=== PATIENT | female | born 1990 | race Caucasian/White ===

== ENCOUNTER 2016-06-22 13:22 | Emergency (ER) | payer OTHER ==
--- NOTE | 2016-06-22 14:35 | PD ---
HPI Chief Complaint Decreased movement Date Seen: Jun 22, 2016 (Pavel Lisa MD R2) Travel History International Travel<30 Days: No Contact w/Intl Traveler<30Days: No (Pavel Lisa MD R2) History of Present Illness HPI Ms. Gregg is a 26 yo G[address] patient of Dr. Verduzco at 27 1/7 weeks (NILDA 09/20/2016) who presents with complaint of decreased movement. Patient accompanied by her who supplemented a history due to language barrier. Patient reports that her gestation has not been moving as much since Wednesday (06/19). Patient otherwise denies symptoms at this time. She reports occasional headaches and occasional back pain, but denies significant headache, vision changes, nausea/vomiting, shortness of breath, chest pain, dysuria, abdominal pain, vaginal bleeding, or vaginal discharge. Patient reports unremarkable history. She reportedly had ultrasound 2 weeks ago which was reassuring. Para: 0 : 1 (Pavel Lisa MD R2) History Past Medical History Medical History: Denies Significant Hx (Pavel Lisa MD R2) Obstetric History Obstetric History G1 (Pavel Lisa MD R2) Past Surgical History Surgical History: No Previous Surgery (Pavel Lisa MD R2) Family History Family History: Negative (Pavel Lisa MD R2) Social History Alcohol Use: No Tobacco Use: No Substance Abuse: No (Pavel Lisa MD R2) Review of Systems General / Constitutional: No: Fever, Chills HENT: Headaches (occasional) Cardiovascular: No: Chest Pain or Discomfort Respiratory: No: Short of Breath Gastrointestinal: No: Vomiting Genitourinary: No: Urgency, Dysuria (Pavel Lisa MD R2) Physical Exam BP 140/75 _> 124/66 HR 113 RR 18 T 98.4 Narrative GENERAL: Well-nourished, well-developed patient. SKIN: Warm and dry. HEAD: Normocephalic and atraumatic. EYES: No scleral icterus. No injection or drainage. ENT: No nasal drainage noted. Mucous membranes pink. Airway patent. NECK: No lymphadenopathy or thyromegaly CARDIOVASCULAR: Regular rate and rhythm without murmurs. Normal perfusion. RESPIRATORY: CTAB, normal rate ABDOMEN/GI: Abdomen soft, non-tender, bowel sounds present, no rebound, no guarding Gravid EXTREMITIES: No peripheral edema NEUROLOGICAL: Awake and alert. Motor and sensory function grossly within normal limits. FHT's: Category: 1 Baseline: 130 Reactive: Y Variability: Mod Decels: None (Pavel Lisa MD R2) Data Data Vital Signs Reviewed: Yes (Pavel Lisa MD R2) MDM Medical Record Reviewed: Yes Narrative Course / MDM 26 yo G1 patient of [address]. Verduzco at 27 1/7 weeks (NILDA 09/20/2016) -Report of decreased FM -Benign course -Cat 1 rhythm -No visible contractions -BP initially 140/75-> 122/66 w/o intervention (suspect stress) Plan: -Will monitor EFM 20 minutes to assure reassuring tracing Interval History: -Category 1 rhythm 20 minutes Updated Plan: -Due to Category 1 rhythm 20 minutes, we are reassured of status at this time. Patient and her were reassured well-being. Will discharge patient to follow-up with Dr. Verduzco routinely. (Pavel Lisa MD R2) Attending Attestation Patient seen and examined. Reports movement since arrival to [facility]. movement counts given. All questions answered. (Gely Valle MD) Diagnosis Diagnosis: Primary Impression: Decreased movement Additional Impression: 27 weeks gestation of Disposition: 01 DISCHARGE HOME Condition: Stable Patient Instructions: General Instructions, Movement (ED) Pavel Lisa MD R2 Jun 22, 2016 14:35 Gely Valle MD Jun 22, 2016 14:50
== END 2016-06-22 14:58 | disposition home or self-care (01) ==
LOC: HOBED 13:22
DX: O36.8120 Decreased fetal movements, second trimester, not applicable or unspecified (principal); Z3A.27 27 weeks gestation of pregnancy
CPT/HCPCS: 99283

== ENCOUNTER 2016-09-23 18:24 | Inpatient (IN) | payer OTHER ==
[~2016-09-23] VITALS: Ht 157.5 cm; Wt 68.9 kg
[2016-09-23 19:08] VITALS: BP 148/79; PULSE 93
[2016-09-23] MEDS: LACTATED RINGER'S 1000 ML INJ 1,000 ML IV SCH (20:00)
[2016-09-23 20:30] VITALS: RESP 18
[2016-09-23] MEDS ORDERED: NS 1000 ML OTHER PRN (20:30)
[2016-09-23] MEDS ORDERED: DINOPROSTONE 10 MG INSERT - REMOVE AT 0600 VAGINAL SCH (20:30)
[2016-09-23] MEDS ORDERED: FERR325C PO (20:32)
[2016-09-23] MEDS ORDERED: PNV-CAP PO (20:32)
[2016-09-23] MEDS ORDERED: LIDOCAINE HCL 1% 50 ML VIAL I-DERMAL PRN (20:45)
[2016-09-23] MEDS ORDERED: CITRIC ACID-SODIUM CITRATE LIQ 30 ML UDC PO SCH (20:45)
[2016-09-23] MEDS ORDERED: LIDOCAINE HCL 1% 50 ML VIAL INFIL PRN (20:45)
[2016-09-23] MEDS ORDERED: ONDANSETRON HCL 4 MG/2 ML VIAL IV PRN (20:45)
[2016-09-23] MEDS ORDERED: OXYTOCIN 30 UNITS 500ML PREMIX IV ONE (20:45)
[2016-09-23] MEDS ORDERED: NS 500 ML BOLUS IV PRN (20:45)
[2016-09-23] MEDS ORDERED: MINERAL OIL 10 ML VIAL TOPICAL PRN (20:45)
[2016-09-23] MEDS ORDERED: LACTATED RINGER'S 1000 ML BOLUS IV PRN (20:45)
[2016-09-23] MEDS ORDERED: NS 1000 ML IV PRN (20:45)
[2016-09-23 20:55] LABS: AUTOMATED NEUTROPHIL # 6.6 TH/MM3 (1.8-7.7); BASOPHIL % 0.1 % (0.0-2.0); EOSINOPHIL # 0.1 TH/MM3 (0-0.4); EOSINOPHIL % 1.3 % (0.0-4.0); HEMATOCRIT 32.1 % (35.0-46.0); HEMO FLAGS DIFF FINAL; LYMPH % 20.2 % (9.0-44.0); MEAN CELL VOLUME 83.7 FL (80.0-100.0); MEAN CORPUSCULAR HEMOGLOBIN 28.6 PG (27.0-34.0); MEAN CORPUSCULAR HGB CONC 34.2 % (32.0-36.0); MONO % 11.9 % (0.0-8.0); NEUT % 66.5 % (16.0-70.0); PLATELET COUNT 205 TH/MM3 (150-450); RED BLOOD COUNT 3.84 MIL/MM3 (4.00-5.30); RED CELL DISTRIBUTION WIDTH 12.2 % (11.6-17.2)
[2016-09-23 20:58] LABS: BACTERIA, URINE RARE /hpf; BLOOD, URINE NEG (NEG); COMMENT (UR) CULT NOT INDICATED; CULTURE IF INDICATED CULT NOT INDICATED; GLUCOSE,URINE NEG (NEG); KETONE, URINE NEG (NEG); NITRITE,URINE NEG (NEG); PH, URINE 6.5 (5.0-8.5); SQUAMOUS EPITHELIAL CELL URINE <1 /hpf (0-5); URINE COLOR LIGHT-YELLOW (YELLW/STRAW)
[2016-09-23] MEDS ORDERED: ZOLPIDEM TARTRATE 5 MG TAB PO ONE (21:00)
[2016-09-23 22:26] VITALS: TEMP 98
[2016-09-23 22:27] VITALS: BP 131/76; PULSE 86; RESP 18
[2016-09-24] VITALS (100 sets, daily range): BP systolic 94–154; BP diastolic 44–104; PULSE 80–153; RESP 16–18; TEMP 97.9–98.8
[2016-09-24] MEDS ORDERED: OXYTOCIN 30 UNITS/NS 500ML PREMIX IV SCH (06:30)
[2016-09-24] MEDS: LACTATED RINGER'S 1000 ML INJ 1,000 ML IV SCH ×2 (07:18→17:05)
--- NOTE | 2016-09-24 08:34 | MH ---
cc: SULEMAN CHAVEZ M.D. DATE OF ADMISSION: 09/23/2016 DATE OF 1990 CHIEF COMPLAINT The patient is being admitted for induction of labor at 40 weeks and 3 days. HISTORY The patient is a 26-year-old female, 1, para 0, last menstrual period was December 19, 2015. Early care confirmed estimated date of confinement at September 20, 2016 by serial first trimester ultrasound. The patient has had an uncomplicated course. The patient presents to her clinic at 40 weeks and 2 days. Cervix is favorable, 60%, 1-2 cm. Pressure is slightly elevated at 130/80. Total weight gain is approximately 45 pounds. The patient denies any specific symptoms. No headache. No nausea or vomiting, blurred vision, decreased movement. There is no increased swelling or edema. The patient was counseled and elected for induction of labor. The patient was brought in for Cervidil on September 23, 2016. The patient's medical history: ALLERGIES NO KNOWN DRUG ALLERGIES. MEDICATIONS She denies any systemic or chronic disease state. PAST SURGICAL HISTORY She has never had surgery. course is unremarkable. The patient has had a healthy course. Group B strep status is negative. The patient's blood type is O+. SOCIAL HISTORY She is . Recent immigrant from [place]. The patient denies any alcohol, tobacco or illicit substance use. FAMILY HISTORY The patient's family history is noncontributory. MEDICATIONS Include vitamins. PHYSICAL EXAMINATION GENERAL: The patient is well-appearing, well-nourished female in no distress. VITAL SIGNS: Stable. Blood pressures 130/80. She weighs 152 pounds. heart rate is in the 140s. Biophysical profile was 8/8. HEENT: The patient's HEENT shows no adenopathy or thyromegaly. LUNGS: Clear in all maurice. CARDIOVASCULAR: Regular rate and rhythm. ABDOMEN: Gravid, full-term. Fundus is about 40 weeks. PELVIC: Cervical exam is 60%, mid position, 1-2 cm, soft, -2. Vertex. EXTREMITIES: Are 1+ edema. No cyanosis, clubbing or edema. Deep tendon reflexes are 1+. ASSESSMENT The patient is 40 weeks and 3 days by confirmed first trimester sonography, uncomplicated course, favorable cervix. Group B strep status negative. The patient is scheduled for Cervidil induction scheduled for 09/23/2016. MD SELENE Little/KK /4:45 PM /8:33 AM
[2016-09-24 09:39] LABS: RAPID PLASMA REAGIN SCREEN NON-REACTIVE (NON-REACTVE)
[2016-09-24] MEDS ORDERED: fentaNYL 2MCG-BUPIV 0.125% INJ 100 ML ONE (14:44)
[2016-09-24] MEDS ORDERED: ePHEDrine/NS 25 MG/5 ML SYR ONE (14:45)
[2016-09-24] MEDS ORDERED: NO SYSTEM NARCOTICS PRN (16:00)
[2016-09-24] MEDS ORDERED: ePHEDrine/NS 25 MG/5 ML SYR IV PRN (16:00)
[2016-09-24] MEDS ORDERED: DO NOT ADMINISTER ANTICOAGULANTS PRN (16:00)
[2016-09-24] MEDS ORDERED: DIPHTH/TETANUS/ACEL PERTUSSIS (BOOSTER) 0.5 ML VIAL/PFS IM ONE (16:00)
[2016-09-24] MEDS ORDERED: fentaNYL 2MCG-BUPIV 0.125% 100 ML EPIDURAL SCH (16:00)
[2016-09-24] MEDS ORDERED: MEASLES, MUMPS, RUBELLA VACCINE 0.5 ML VIAL SQ ONE (16:00)
[2016-09-24] MEDS ORDERED: CARBOPROST TROMETHAMINE 250 MCG/ML VIAL ONE (20:09)
[2016-09-24] MEDS ORDERED: CARBOPROST TROMETHAMINE 250 MCG/ML VIAL IM ONE (20:15)
--- NOTE | 2016-09-24 20:25 | PD.OB.DELI ---
Anesthesia: Epidural Episiotomy: Right mediolateral Vaginal Delivery: Vacuum Presentation: Occiput anterior Nuchal Cord: None Delayed cord clamping (45 sec): Yes Shoulder Dystocia: Suprapubic pressure given, Johann maneuver done, Wood's screw maneuver done, Other (Vijay Manuever and fracture of right clavicle ( intentional)) Infant: Female One Minute : 5 Five Minute : 8 Weight: 8 12 Placenta: Spontaneous delivery Laceration: 3 deg Repair: Vicryl interrupted, Vicryl running (moderate PPH treated with hemobate and evacuation of uterus all dictated) Sofi Rosario MD Sep 24, 2016 20:25
[2016-09-24 20:30] LABS: BLOOD GAS BASE EXCESS -7.8 mmol/L (-2-2); BLOOD GAS O2 HGB SATURATION 26 % (90-100); CORD BLOOD GAS HCO3 18 mmol/L (21-29); CORD BLOOD GAS PCO2 45 mmHG (34-78); CORD BLOOD GAS PH 7.23 (7.14-7.42); CORD BLOOD GAS PO2 19 mmHG (3.0-40.0); DRAW SITE CORD BLOOD; STAT YES
[2016-09-24] MEDS ORDERED: BENZOCAINE 20% TOPICAL SPRAY 60 ML CAN TOPICAL PRN (20:30)
[2016-09-24] MEDS ORDERED: DOCUSATE SODIUM 50 MG/SENNA 8.6 MG TAB PO PRN (20:30)
[2016-09-24] MEDS ORDERED: oxyCODONE/ACETAMINOPHEN 5 MG/325 MG TAB PO PRN (20:30)
[2016-09-24] MEDS ORDERED: ZOLPIDEM TARTRATE 5 MG TAB PO PRN (20:30)
[2016-09-24] MEDS ORDERED: ONDANSETRON ODT 4 MG TAB PO PRN (20:30)
[2016-09-24] MEDS ORDERED: ALUMINUM/MAGNESIUM/SIMETH 30 ML CUP PO PRN (20:30)
[2016-09-24] MEDS ORDERED: SODIUM CHLORIDE 0.9% FLUSH 10 ML FLUSH IV FLUSH PRN (20:30)
[2016-09-24] MEDS ORDERED: OXYTOCIN 30 UNITS-500ML PREMIX 500 ML IV ONE (20:40)
--- NOTE | 2016-09-24 20:57 | MP ---
cc: SOFI BETHEA DATE OF DELIVERY 09/24/16 DATE OF 1990 The patient is a 26 year old [place] female 1, para 0 at 40+ weeks estimated gestational age who was brought in for induction by Dr. Verduzco. She had received I believe it was Cervidil on the evening of September 23. I introduced myself this morning to Beba at approximately 8 o'clock when she was 2 cm 80% -2 with the baby well applied. Estimated weight at that time I thought was 7-1/2 pounds and I felt her pelvis was clinically adequate. Baby was well applied. Strip was category one. She was started on Pitocin after AROM clear and had difficulty establishing a consistent contraction pattern throughout the day. Her initial cervical change was slow and, when I arrived at 5:30 to labor and delivery, she was described as 4 cm -1 to -2, 80% effaced. Her strip had some tachycardia, occasional late appearing decelerations, some variables but overall always had excellent [id number] variability. At the time I arrived, there was developing some tachycardia, but she was afebrile. When I checked her, she was complete and at zero station. At that time, there was really no significant swelling. There was a small asynclitic caput to the left side of the mom. Because the strip was category II and less than reassuring, we began to push and Beba's effort was somewhat marginal. Her epidural was turned off and after a good 1/2 hour she was counseled on vacuum and a vacuum was placed over three contractions bringing the baby down nicely. She was not able to take the baby to on her own over the course of the next 1/2 hour. Martin Vianca's were considered and an application was attempted, but the asynclitism of the was such that it was not appropriate to apply. At this point. the Liz catheter had been removed. The baby was down so far we could not catheterize the bladder. Over the course of the next 1/2 hour, Beba continued to push with the use of the towel. use of handle bars and eventually on her left side. A right medial lateral episiotomy was cut and, when the baby did crown, it was immediately noted to be a significant shoulder dystocia with a turtling of the 's head back into the perineum. a shoulder dystocia drill was called, times were taken, suprapubic pressure was applied and at a Johann was performed head downward, gentle is consistent traction was applied to the 's head. I attempted to do at this point a Blandon maneuver and a counter Blandon maneuver, was not successful and the anterior shoulder was firmly impacted against the pubic symphysis. The posterior shoulder was not impacted and I could palpate the arm and clavicle. She was therefore placed into knee chest position, making the posterior shoulder the anterior shoulder evaluated and the clavicle was then pressed, likely fractured on the infant's right and the arm delivered and then the baby delivered. Her Apgars were 4 at 1 minute and 8 at 5 minutes with significant grunting. She had two off for color and two off for tone. She was never bradycardic but profoundly tachycardiac initially. Cord gases and cord blood was obtained and then the placenta was delivered intact with a three-vessel cord. The mediolateral episiotomy head extended into the sphincter. This was repaired with 2-0 Vicryl multiple interrupted and then the ischiocavernosa muscle was repaired and then the classic second degree repair was performed and 4-0 Vicryl was used on the perineum close to the rectum where she has significant hemorrhoids. Estimated blood loss in the next hour was about 500 mL and significant clot was removed from the uterus and she was given Hemabate. Infant is currently being evaluated in the NICU. Her right arm appears to be sore. She is moving the hand and the lower extremity well. Does appear to have tone in the upper portion but does not care to use it at this time. She is on C-PAP, satting reasonably well and will be monitored by the nurse practitioner for the intensive care unit tonight. Sponge, instrument, needle count were correct and mom and baby are currently doing reasonably well. Sofi Bethea MD PPC/SA /8:21 PM /8:42 PM
[2016-09-24] MEDS ORDERED: SODIUM CHLORIDE 0.9% FLUSH 10 ML FLUSH IV FLUSH SCH (21:00)
[2016-09-24] MEDS: oxyCODONE/ACETAMINOPHEN 5 MG/325 MG TAB PO PRN (22:30)
[2016-09-24] MEDS ORDERED: ceFAZolin 1,000 MG/NS 100 ML IV ONE ×2 (23:15)
[2016-09-24] MEDS: WITCH HAZEL 50%/GLYCERIN 12.5% 40 PAD JAR TOPICAL PRN (23:45)
[2016-09-25 00:54] VITALS: BP 131/71; PULSE 105; RESP 16; TEMP 98.4
[2016-09-25] MEDS: oxyCODONE/ACETAMINOPHEN 5 MG/325 MG TAB PO PRN ×2 (04:40→17:47)
[2016-09-25] MEDS: IBUPROFEN 600 MG TAB PO PRN ×2 (04:43→17:46)
[2016-09-25 08:00] VITALS: BP 110/69; PULSE 108; RESP 16; TEMP 98.1
--- NOTE | 2016-09-25 08:08 | HHI.OB ---
Subjective Post Day: 1 Remarks Doing well , No chest pain or pressure, no dizziness, quite fatigued. Pain is well controlled Bottom is sore. How is the baby? Objective Vitals/I&O Vital Signs Date Time Temp Pulse Resp B/P Pulse Ox O2 Delivery O2 Flow Rate FiO2 09/25/16 00:54 98.4 105 16 131/71 09/24/16 23:36 98.8 09/24/16 23:36 18 09/24/16 23:30 107 120/69 09/24/16 23:00 105 18 132/70 09/24/16 22:30 104 122/80 09/24/16 22:24 18 09/24/16 22:15 98 128/77 09/24/16 22:00 103 138/78 09/24/16 22:00 18 09/24/16 21:45 107 148/80 09/24/16 21:43 18 09/24/16 21:30 107 131/74 09/24/16 21:30 18 09/24/16 21:15 18 09/24/16 21:15 117 127/84 09/24/16 21:00 105 134/86 09/24/16 21:00 18 09/24/16 20:45 103 141/82 09/24/16 20:40 18 09/24/16 20:30 106 137/82 09/24/16 20:30 18 09/24/16 20:15 122 121/67 09/24/16 20:15 18 09/24/16 20:01 133 105/45 09/24/16 19:46 132 119/49 09/24/16 19:30 140 09/24/16 19:25 153 09/24/16 19:20 134 09/24/16 19:15 130 09/24/16 19:15 151 09/24/16 19:10 124 09/24/16 19:10 140 135/71 09/24/16 19:01 142 129/104 09/24/16 18:45 126 125/75 09/24/16 18:16 128 152/76 09/24/16 18:10 137 09/24/16 18:05 131 09/24/16 18:00 117 09/24/16 18:00 122 154/65 09/24/16 17:55 117 09/24/16 17:50 107 09/24/16 17:45 85 09/24/16 17:45 86 118/60 09/24/16 17:40 92 09/24/16 17:35 84 09/24/16 17:30 86 94/68 09/24/16 17:30 93 09/24/16 17:25 82 09/24/16 17:20 84 09/24/16 17:15 85 09/24/16 17:15 85 108/60 09/24/16 17:12 98.2 16 09/24/16 17:10 87 09/24/16 17:05 16 09/24/16 17:05 95 09/24/16 17:00 80 116/66 09/24/16 17:00 89 09/24/16 16:55 85 09/24/16 16:50 88 09/24/16 16:45 85 107/66 09/24/16 16:45 89 09/24/16 16:42 18 09/24/16 16:40 85 09/24/16 16:35 87 09/24/16 16:31 92 108/68 09/24/16 16:30 87 09/24/16 16:25 85 09/24/16 16:20 87 09/24/16 16:15 85 09/24/16 16:15 85 112/67 09/24/16 16:10 105 09/24/16 16:05 101 09/24/16 16:00 93 09/24/16 16:00 109 110/56 09/24/16 15:55 96 09/24/16 15:50 100 09/24/16 15:45 96 09/24/16 15:45 103 106/44 17 15:40 105 09/24/16 15:35 104 09/24/16 15:30 94 09/24/16 15:30 92 105/45 09/24/16 15:29 98.0 16 09/24/16 15:25 92 17 15:25 112 117/61 17 15:20 105 125/64 09/24/16 15:15 105 109/55 09/24/16 15:12 108 114/51 09/24/16 15:10 112 109/66 09/24/16 15:08 114 115/62 09/24/16 15:06 113 118/62 09/24/16 15:05 107 09/24/16 15:04 105 111/63 09/24/16 15:02 112 119/75 09/24/16 15:00 103 130/79 09/24/16 14:55 104 09/24/16 14:44 16 09/24/16 14:40 93 09/24/16 14:35 83 09/24/16 14:31 85 117/72 09/24/16 14:30 82 09/24/16 14:30 97.9 16 09/24/16 14:25 88 09/24/16 14:20 83 09/24/16 14:10 83 09/24/16 14:05 96 09/24/16 14:00 85 09/24/16 13:31 87 121/76 09/24/16 12:25 98.3 09/24/16 12:24 81 133/81 09/24/16 12:23 17 09/24/16 11:57 98.2 09/24/16 11:00 98.2 09/24/16 10:30 89 122/71 09/24/16 09:30 88 09/24/16 09:30 98.6 86 18 129/76 09/24/16 09:25 91 09/24/16 09:15 98 09/24/16 09:10 99 09/24/16 09:05 101 09/24/16 08:30 93 124/71 Objective Remarks GENERAL: Well-nourished, well-developed patient. CARDIOVASCULAR: Regular rhythm mildly tachycardic, without murmurs, gallops, or rubs. RESPIRATORY: Breath sounds equal bilaterally. No accessory muscle use. ABDOMEN/GI: Abdomen soft, non-tender. Fundus: Firm, non-tender at umbilicus. GENITOURINARY: Light to moderate bleeding. EXTREMITIES: No cyanosis or edema, non-tender, without signs of DVT. Medications and IVs Current Medications Medications (Trade) Dose Ordered Sig/Yakov Route Start Time Stop Time Status Last Admin Lactated Ringer's 1,000 ml @ 125 mls/hr Q8H IV 09/23/16 20:30 09/24/16 17:05 Sodium Chloride 1,000 ml @ 0 mls/hr UNSCH PRN OTHER 09/23/16 20:30 Lactated Ringer's 1,000 ml @ 3,000 mls/hr BOLUS PRN IV 09/23/16 20:45 Sodium Chloride 500 ml @ 1,000 mls/hr BOLUS PRN IV 09/23/16 20:45 (NS 1000 ml Inj) 1,000 ml @ 100 mls/hr Q10H PRN IV 09/23/16 20:45 (Zofran Inj) 4 mg Q6H PRN IV 09/23/16 20:45 (fentaNYL INJ) 50 mcg Q1H PRN IV PUSH 09/23/16 20:45 09/24/16 11:12 (fentaNYL INJ) 100 mcg Q1H PRN IV PUSH 09/23/16 20:45 09/24/16 19:39 Mineral Oil 10 ml 10 ml UNSCH PRN TOPICAL 09/23/16 20:45 (Pitocin 30 Units-NS 500 ml Premix) 500 ml @ 0 mls/hr TITRATE IV 09/24/16 06:30 09/24/16 07:18 Miscellaneous Information No systemic narcotics to be given except... UNSCH PRN .XX 09/24/16 16:00 09/25/16 15:59 Miscellaneous Information DO NOT ADMINISTER ANY ANTICOAGUL... UNSCH PRN .XX 09/24/16 16:00 09/25/16 15:59 (fentaNYL 2MCG-BUPIV 0.125% INJ) 100 ml @ 0 mls/hr TITRATE EPIDURAL 09/24/16 16:00 09/24/16 17:05 (ePHEDrine/NS 25 MG/5 ML SYR) 10 mg UNSCH PRN IV 09/24/16 16:00 09/25/16 15:59 (NS Flush) 2 ml BID IV FLUSH 09/24/16 21:00 (NS Flush) 2 ml UNSCH PRN IV FLUSH 09/24/16 20:30 (Tylenol) 650 mg Q4H PRN PO 09/24/16 20:30 (Motrin) 600 mg Q6H PRN PO 09/24/16 20:30 09/25/16 04:43 (Percocet 5-325 Mg) 1 tab Q4H PRN PO 09/24/16 20:30 09/25/16 04:40 (Percocet 5-325 Mg) 2 tab Q4H PRN PO 09/24/16 20:30 (Americaine 20% Top Spr) 1 spray Q4H PRN TOPICAL 09/24/16 20:30 09/24/16 23:45 (Tucks Pads) 1 applic QID PRN TOPICAL 09/24/16 20:30 09/24/16 23:45 (Trinh-Colace) 2 tab Q12H PRN PO 09/24/16 20:30 (Ambien) 5 mg HS PRN PO 09/24/16 20:30 (Mag-Al Plus Susp Liq) 15 ml Q8H PRN PO 09/24/16 20:30 (Zofran Odt) 4 mg Q6H PRN PO 09/24/16 20:30 (Miralax) 17 gm DAILY PO 09/25/16 09:00 Assessment/Plan Assessment and Plan PPD #1 Severe anemia. will give venofer for 3 days and consider transfusion if she becomes Sx or if H/H falls Follow her cbc. Baby is in the NICU and doing well. Some problems with the movement ot the arm. They are following it closely and may get an CXR to check the clavicle Discussed the need to have a C/S with her next delivery. Discharge Planning may need to stay an extra day due to the severe anemia. Seth Armenta MD Sep 25, 2016 08:08
[2016-09-25] MEDS: LACTATED RINGER'S 1000 ML INJ 1,000 ML IV SCH (08:29)
[2016-09-25 10:37] LABS: AUTOMATED NEUTROPHIL # 10.7 TH/MM3 (1.8-7.7); BASOPHIL % 0.1 % (0.0-2.0); EOSINOPHIL % 0.2 % (0.0-4.0); MEAN CELL VOLUME 84.2 FL (80.0-100.0); MEAN CORPUSCULAR HEMOGLOBIN 28.4 PG (27.0-34.0); MEAN CORPUSCULAR HGB CONC 33.8 % (32.0-36.0); MONO % 6.1 % (0.0-8.0); NEUT % 78.6 % (16.0-70.0); PLATELET COUNT 153 TH/MM3 (150-450); RED BLOOD COUNT 2.46 MIL/MM3 (4.00-5.30); RED CELL DISTRIBUTION WIDTH 12.5 % (11.6-17.2); WHITE BLOOD COUNT 13.6 TH/MM3 (4.0-11.0)
[2016-09-25 10:42] LABS: HEMO FLAGS DIFF FINAL
[2016-09-25 10:45] LABS: HEMATOCRIT 20.7 % (35.0-46.0)
[2016-09-25] MEDS: IRON SUCROSE INJ 200 MG in SODIUM CHLORIDE 0.9% INJ 100 ML IV SCH (11:25)
--- NOTE | 2016-09-25 11:48 | HHI.DCPOC ---
Discharge Care Plan Diagnosis: (1) Anemia (2) Normal vaginal delivery Report Symptoms to Your Doctor -Temperature above 100.5 degrees -Redness, of incision or excessive or foul smelling drainage -Unusual pain or calf pain -Increased vaginal bleeding -Painful or difficulty urinating -Feelings of extreme sadness or anxiety after 2 weeks Goals to Promote Your Health * To prevent worsening of your condition and complications * To maintain your health at the optimal level Directions to Meet Your Goals Take your medications as prescribed Follow your dietary instruction Follow activity as directed Ensure plenty of rest for recovery Drink fluids for hydration Keep your appointments as scheduled Take your immunizations and boosters as scheduled If your symptoms worsen call your PCP, if no PCP go to Urgent Care Center or Emergency Room Smoking is Dangerous to Your Health. Avoid second hand smoke Call the 24-hour crisis hotline for domestic abuse at Soraya David Sep 25, 2016 11:48
[2016-09-25 20:15] VITALS: BP 108/67; PULSE 105; RESP 18; TEMP 98.2
[2016-09-26 06:51] LABS: MEAN CELL VOLUME 86.2 FL (80.0-100.0); MEAN CORPUSCULAR HEMOGLOBIN 28.3 PG (27.0-34.0); MEAN CORPUSCULAR HGB CONC 32.8 % (32.0-36.0); PLATELET COUNT 161 TH/MM3 (150-450); RED BLOOD COUNT 2.36 MIL/MM3 (4.00-5.30); RED CELL DISTRIBUTION WIDTH 12.6 % (11.6-17.2); WHITE BLOOD COUNT 13.2 TH/MM3 (4.0-11.0)
[2016-09-26 07:11] LABS: REVIEW FLAG FINAL
[2016-09-26 07:13] LABS: HEMATOCRIT 20.4 % (35.0-46.0)
[2016-09-26 07:21] VITALS: BP 115/75; PULSE 111; RESP 18; TEMP 99.3
[2016-09-26] MEDS: IBUPROFEN 600 MG TAB PO PRN ×2 (08:25→23:30)
[2016-09-26] MEDS: POLYETHYLENE GLYCOL 17 GM PKG PO SCH (09:00)
[2016-09-26] MEDS: IRON SUCROSE INJ 200 MG in SODIUM CHLORIDE 0.9% INJ 100 ML IV SCH (12:20)
--- NOTE | 2016-09-26 13:57 | HHI.OB ---
Subjective Post Day: 2 Remarks Doing ok No SOB, chest pain or pressure, no dizziness. Tolerating diet well. she is a vegan. Objective Vitals/I&O Vital Signs Date Time Temp Pulse Resp B/P Pulse Ox O2 Delivery O2 Flow Rate FiO2 09/26/16 07:21 99.3 111 18 115/75 09/25/16 20:15 105 18 108/67 09/25/16 20:15 98.2 Objective Remarks GENERAL: Well-nourished, well-developed patient. CARDIOVASCULAR: Regular rhythm slightly tachycardic, without murmurs, gallops, or rubs. RESPIRATORY: Breath sounds equal bilaterally. No accessory muscle use. ABDOMEN/GI: Abdomen soft, non-tender. Fundus: Firm, non-tender at umbilicus. GENITOURINARY: Light bleeding. EXTREMITIES: No cyanosis or edema, non-tender, without signs of DVT. Medications and IVs Current Medications Medications (Trade) Dose Ordered Sig/Yakov Route Start Time Stop Time Status Last Admin Lactated Ringer's 1,000 ml @ 125 mls/hr Q8H IV 09/23/16 20:30 09/25/16 08:29 Sodium Chloride 1,000 ml @ 0 mls/hr UNSCH PRN OTHER 09/23/16 20:30 Lactated Ringer's 1,000 ml @ 3,000 mls/hr BOLUS PRN IV 09/23/16 20:45 Sodium Chloride 500 ml @ 1,000 mls/hr BOLUS PRN IV 09/23/16 20:45 (NS 1000 ml Inj) 1,000 ml @ 100 mls/hr Q10H PRN IV 09/23/16 20:45 (Zofran Inj) 4 mg Q6H PRN IV 09/23/16 20:45 (fentaNYL INJ) 50 mcg Q1H PRN IV PUSH 09/23/16 20:45 09/24/16 11:12 (fentaNYL INJ) 100 mcg Q1H PRN IV PUSH 09/23/16 20:45 09/24/16 19:39 Mineral Oil 10 ml 10 ml UNSCH PRN TOPICAL 09/23/16 20:45 Oxytocin 500 ml @ 0 mls/hr TITRATE IV 09/24/16 06:30 09/24/16 07:18 (fentaNYL 2MCG-BUPIV 0.125% INJ) 100 ml @ 0 mls/hr TITRATE EPIDURAL 09/24/16 16:00 09/24/16 17:05 (NS Flush) 2 ml BID IV FLUSH 09/24/16 21:00 (NS Flush) 2 ml UNSCH PRN IV FLUSH 09/24/16 20:30 (Tylenol) 650 mg Q4H PRN PO 09/24/16 20:30 (Motrin) 600 mg Q6H PRN PO 09/24/16 20:30 09/26/16 08:25 (Percocet 5-325 Mg) 1 tab Q4H PRN PO 09/24/16 20:30 09/25/16 17:47 (Percocet 5-325 Mg) 2 tab Q4H PRN PO 09/24/16 20:30 (Americaine 20% Top Spr) 1 spray Q4H PRN TOPICAL 09/24/16 20:30 09/24/16 23:45 (Tucks Pads) 1 applic QID PRN TOPICAL 09/24/16 20:30 09/24/16 23:45 (Trinh-Colace) 2 tab Q12H PRN PO 09/24/16 20:30 (Ambien) 5 mg HS PRN PO 09/24/16 20:30 (Mag-Al Plus Susp Liq) 15 ml Q8H PRN PO 09/24/16 20:30 09/25/16 11:24 (Zofran Odt) 4 mg Q6H PRN PO 09/24/16 20:30 Polyethylene Glycol 17 gm 17 gm DAILY PO 09/25/16 09:00 (Venofer Inj/NS Inj) 110 ml @ 110 mls/hr Q24H IV 09/25/16 12:00 09/27/16 12:59 09/26/16 12:20 Assessment/Plan Assessment and Plan PPD #2 Severe anemia..discussed the RBA of blood transfusion with pt and her family. she is not symptomatic at this time and she has plenty of help at home She is a Vegan and does not eat meat or eggs. I got her a list of iron rich foods in [place] and will start her back on Fe and pericolace when she goes home. Will get a follow up cbc in one week. She will get her third dose of venofer tomorrow. H/o Traumatic ... baby is doing well and discussed the need for a c/s with her next child Discharge Planning Plan to d/c home tomorrow due to the severe anemia. Seth Armenta MD Sep 26, 2016 13:57
[2016-09-26] MEDS ORDERED: IBUP-232 PO (14:00)
[2016-09-26 19:29] VITALS: BP 120/78; PULSE 126; RESP 16; TEMP 99.8
[2016-09-26] MEDS: WITCH HAZEL 50%/GLYCERIN 12.5% 40 PAD JAR TOPICAL PRN (19:41)
[2016-09-26] MEDS: ACETAMINOPHEN 325 MG TAB PO PRN (23:29)
[2016-09-27 00:25] VITALS: TEMP 98.2
[2016-09-27 06:18] LABS: MEAN CELL VOLUME 85.6 FL (80.0-100.0); MEAN CORPUSCULAR HEMOGLOBIN 28.4 PG (27.0-34.0); MEAN CORPUSCULAR HGB CONC 33.2 % (32.0-36.0); PLATELET COUNT 182 TH/MM3 (150-450); RED BLOOD COUNT 2.32 MIL/MM3 (4.00-5.30); RED CELL DISTRIBUTION WIDTH 12.4 % (11.6-17.2); WHITE BLOOD COUNT 11.6 TH/MM3 (4.0-11.0)
[2016-09-27 06:22] LABS: REVIEW FLAG FINAL
[2016-09-27 06:25] LABS: HEMATOCRIT 19.9 % (35.0-46.0)
[2016-09-27 08:00] VITALS: BP 122/77; PULSE 106; RESP 17; TEMP 98.3
[2016-09-27 08:44] LABS: REVIEW FLAG FINAL
[2016-09-27 08:46] LABS: HEMATOCRIT 20.5 % (35.0-46.0)
[2016-09-27] MEDS: POLYETHYLENE GLYCOL 17 GM PKG PO SCH (09:00)
--- NOTE | 2016-09-27 09:50 | HHI.OB ---
Subjective Post Day: 3 Remarks Doing ok No chest pain or SOB or dizziness. Quite fatigued but o/w ok Tolerating diet well Objective Vitals/I&O Vital Signs Date Time Temp Pulse Resp B/P Pulse Ox O2 Delivery O2 Flow Rate FiO2 09/27/16 08:00 98.3 17 09/27/16 08:00 106 122/77 09/27/16 00:25 98.2 09/26/16 19:29 126 16 120/78 09/26/16 19:29 99.8 Objective Remarks GENERAL: Well-nourished, well-developed patient. CARDIOVASCULAR: Regular rhythm mildly tachycardic, without murmurs, gallops, or rubs. RESPIRATORY: Breath sounds equal bilaterally. No accessory muscle use. ABDOMEN/GI: Abdomen soft, non-tender. Fundus: Firm, non-tender at umbilicus. GENITOURINARY: Light to moderate bleeding. EXTREMITIES: No cyanosis or edema, non-tender, without signs of DVT. Medications and IVs Current Medications Medications (Trade) Dose Ordered Sig/Yakov Route Start Time Stop Time Status Last Admin Lactated Ringer's 1,000 ml @ 125 mls/hr Q8H IV 09/23/16 20:30 09/25/16 08:29 Sodium Chloride 1,000 ml @ 0 mls/hr UNSCH PRN OTHER 09/23/16 20:30 Lactated Ringer's 1,000 ml @ 3,000 mls/hr BOLUS PRN IV 09/23/16 20:45 Sodium Chloride 500 ml @ 1,000 mls/hr BOLUS PRN IV 09/23/16 20:45 (NS 1000 ml Inj) 1,000 ml @ 100 mls/hr Q10H PRN IV 09/23/16 20:45 (Zofran Inj) 4 mg Q6H PRN IV 09/23/16 20:45 (fentaNYL INJ) 50 mcg Q1H PRN IV PUSH 09/23/16 20:45 09/24/16 11:12 (fentaNYL INJ) 100 mcg Q1H PRN IV PUSH 09/23/16 20:45 09/24/16 19:39 Mineral Oil 10 ml 10 ml UNSCH PRN TOPICAL 09/23/16 20:45 Oxytocin 500 ml @ 0 mls/hr TITRATE IV 09/24/16 06:30 09/24/16 07:18 (fentaNYL 2MCG-BUPIV 0.125% INJ) 100 ml @ 0 mls/hr TITRATE EPIDURAL 09/24/16 16:00 09/24/16 17:05 (NS Flush) 2 ml BID IV FLUSH 09/24/16 21:00 (NS Flush) 2 ml UNSCH PRN IV FLUSH 09/24/16 20:30 (Tylenol) 650 mg Q4H PRN PO 09/24/16 20:30 09/26/16 23:29 (Motrin) 600 mg Q6H PRN PO 09/24/16 20:30 09/26/16 23:30 (Percocet 5-325 Mg) 1 tab Q4H PRN PO 09/24/16 20:30 09/25/16 17:47 (Percocet 5-325 Mg) 2 tab Q4H PRN PO 09/24/16 20:30 (Americaine 20% Top Spr) 1 spray Q4H PRN TOPICAL 09/24/16 20:30 09/24/16 23:45 (Tucks Pads) 1 applic QID PRN TOPICAL 09/24/16 20:30 09/26/16 19:41 (Trinh-Colace) 2 tab Q12H PRN PO 09/24/16 20:30 (Ambien) 5 mg HS PRN PO 09/24/16 20:30 (Mag-Al Plus Susp Liq) 15 ml Q8H PRN PO 09/24/16 20:30 09/25/16 11:24 (Zofran Odt) 4 mg Q6H PRN PO 09/24/16 20:30 Polyethylene Glycol 17 gm 17 gm DAILY PO 09/25/16 09:00 (Venofer Inj/NS Inj) 110 ml @ 110 mls/hr Q24H IV 09/25/16 12:00 09/27/16 12:59 09/26/16 12:20 Assessment/Plan Assessment and Plan PPD #3 Severe anemia. Discussed the RBA of blood in detail. We will hold off on blood for now They really do not want blood at this time. Will hold her til tomorrow and consider transfusion if H/H drops or she becomes symptomatic. The baby can be discharged tomorrow but will need a neurosurgical consultation as there is a brachial plexus problem. Not bonding with the baby... will encourage nursing staff to help with this and will keep her til tomorrow to check blood count and to check how she is bonding I will also get a social service consultation as the NICU nurses are concerned about they not having enough supplies to take care of the baby. Seth Armenta MD Sep 27, 2016 09:50
[2016-09-27] MEDS: IRON SUCROSE INJ 200 MG in SODIUM CHLORIDE 0.9% INJ 100 ML IV SCH (13:45)
[2016-09-27 19:50] VITALS: BP 142/84; PULSE 117; RESP 16; TEMP 98.3
[2016-09-27 21:00] VITALS: BP 106/63
[2016-09-27] MEDS: IBUPROFEN 600 MG TAB PO PRN (23:34)
[2016-09-27] MEDS: ACETAMINOPHEN 325 MG TAB PO PRN (23:34)
[2016-09-28 08:00] VITALS: BP 129/86; PULSE 101; RESP 17; TEMP 97.9
--- NOTE | 2016-09-28 08:23 | HHI.OB ---
Subjective Post Day: 4 Remarks Doing well, No chest pain or pressure, SOB, or dizziness. Baby is doing ok but needs a neurosurgery consultation soon for the brachial plexus problem. Ready to go home Objective Vitals/I&O Vital Signs Date Time Temp Pulse Resp B/P Pulse Ox O2 Delivery O2 Flow Rate FiO2 09/27/16 21:00 106/63 09/27/16 19:50 98.3 117 16 142/84 Objective Remarks GENERAL: Well-nourished, well-developed patient. CARDIOVASCULAR: Regular rhythm mildly tachycardic, without murmurs, gallops, or rubs. RESPIRATORY: Breath sounds equal bilaterally. No accessory muscle use. ABDOMEN/GI: Abdomen soft, non-tender. Fundus: Firm, non-tender at umbilicus. GENITOURINARY: Light to moderate bleeding. EXTREMITIES: No cyanosis or edema, non-tender, without signs of DVT. Medications and IVs Current Medications Medications (Trade) Dose Ordered Sig/Yakov Route Start Time Stop Time Status Last Admin Lactated Ringer's 1,000 ml @ 125 mls/hr Q8H IV 09/23/16 20:30 09/25/16 08:29 Sodium Chloride 1,000 ml @ 0 mls/hr UNSCH PRN OTHER 09/23/16 20:30 Lactated Ringer's 1,000 ml @ 3,000 mls/hr BOLUS PRN IV 09/23/16 20:45 Sodium Chloride 500 ml @ 1,000 mls/hr BOLUS PRN IV 09/23/16 20:45 (NS 1000 ml Inj) 1,000 ml @ 100 mls/hr Q10H PRN IV 09/23/16 20:45 (Zofran Inj) 4 mg Q6H PRN IV 09/23/16 20:45 (fentaNYL INJ) 50 mcg Q1H PRN IV PUSH 09/23/16 20:45 09/24/16 11:12 (fentaNYL INJ) 100 mcg Q1H PRN IV PUSH 09/23/16 20:45 09/24/16 19:39 Mineral Oil 10 ml 10 ml UNSCH PRN TOPICAL 09/23/16 20:45 Oxytocin 500 ml @ 0 mls/hr TITRATE IV 09/24/16 06:30 09/24/16 07:18 (fentaNYL 2MCG-BUPIV 0.125% INJ) 100 ml @ 0 mls/hr TITRATE EPIDURAL 09/24/16 16:00 09/24/16 17:05 (NS Flush) 2 ml BID IV FLUSH 09/24/16 21:00 (NS Flush) 2 ml UNSCH PRN IV FLUSH 09/24/16 20:30 (Tylenol) 650 mg Q4H PRN PO 09/24/16 20:30 09/27/16 23:34 (Motrin) 600 mg Q6H PRN PO 09/24/16 20:30 09/27/16 23:34 (Percocet 5-325 Mg) 1 tab Q4H PRN PO 09/24/16 20:30 09/25/16 17:47 (Percocet 5-325 Mg) 2 tab Q4H PRN PO 09/24/16 20:30 (Americaine 20% Top Spr) 1 spray Q4H PRN TOPICAL 09/24/16 20:30 09/24/16 23:45 (Tucks Pads) 1 applic QID PRN TOPICAL 09/24/16 20:30 09/26/16 19:41 (Trinh-Colace) 2 tab Q12H PRN PO 09/24/16 20:30 (Ambien) 5 mg HS PRN PO 09/24/16 20:30 (Mag-Al Plus Susp Liq) 15 ml Q8H PRN PO 09/24/16 20:30 09/25/16 11:24 (Zofran Odt) 4 mg Q6H PRN PO 09/24/16 20:30 (Miralax) 17 gm DAILY PO 09/25/16 09:00 Assessment/Plan Assessment and Plan PPD #4 Ready to go home Severe anemia. Discussed the RBA of blood in detail. We will hold off on blood for now They really do not want blood at this time. Will hold off now and see her in 2 weeks. Will get a CBC in two weeks too. Not bonding with the baby... will encourage nursing staff to help with this and will keep her til tomorrow to check blood count and to check how she is bonding I will also get a social service consultation as the NICU nurses are concerned about they not having enough supplies to take care of the baby. Seth Armenta MD Sep 28, 2016 08:23
[2016-09-28] MEDS: IBUPROFEN 600 MG TAB PO PRN (11:20)
[2016-09-28] MEDS: ACETAMINOPHEN 325 MG TAB PO PRN (11:21)
[2016-09-28] MEDS: WITCH HAZEL 50%/GLYCERIN 12.5% 40 PAD JAR TOPICAL PRN (12:35)
== END 2016-09-28 13:35 | disposition home or self-care (01) | DRG 774 ==
LOC: H2EB 18:24 → H1EA 09-24 23:58
PROVIDERS: ADMIT Obstetrics & Gynecology; ATTEND Obstetrics & Gynecology
PROC: 3E0P7GC Introduction of Other Therapeutic Substance into Female Reproductive, Via Natural or Artificial Opening (ICD-10-PCS; 2016-09-23)
PROC: 10D07Z6 Extraction of Products of Conception, Vacuum, Via Natural or Artificial Opening (ICD-10-PCS; principal; 2016-09-24)
PROC: 0DQR0ZZ Repair Anal Sphincter, Open Approach (ICD-10-PCS; 2016-09-24)
PROC: 0W8NXZZ Division of Female Perineum, External Approach (ICD-10-PCS; 2016-09-24)
PROC: 10907ZC Drainage of Amniotic Fluid, Therapeutic from Products of Conception, Via Natural or Artificial Opening (ICD-10-PCS; 2016-09-24)
PROC: 00HU33Z Insertion of Infusion Device into Spinal Canal, Percutaneous Approach (ICD-10-PCS; 2016-09-24)
PROC: 3E0R3CZ (ICD-10-PCS; 2016-09-24)
DX: O66.0 Obstructed labor due to shoulder dystocia (principal); O72.1 Other immediate postpartum hemorrhage; O70.20 Third degree perineal laceration during delivery, unspecified; Z37.0 Single live birth; Z3A.40 40 weeks gestation of pregnancy; O99.02 Anemia complicating childbirth; O76 Abnormality in fetal heart rate and rhythm complicating labor and delivery
CPT/HCPCS: 81001; 82805; 85014; 85018; 85025; 85027; 86592; 86850; 86900; 86901; 86920; 88307; J1756; J2590; J3010; J7120